=== PATIENT | female | born 1980 | race Caucasian/White ===

== ENCOUNTER → 2020-09-25 | Outpatient (CLI) | payer BC, OTHER | LOC: KOH-I 10:14 | DX: M25.572 Pain in left ankle and joints of left foot (principal) | CPT/HCPCS: 73610; 73630 ==

== ENCOUNTER → 2020-10-03 | Outpatient (CLI) | payer BC, OTHER | LOC: KOH-I 13:30 | DX: S96.912A Strain of unspecified muscle and tendon at ankle and foot level, left foot, initial encounter (principal); M25.475 Effusion, left foot | CPT/HCPCS: 73718 ==

== ENCOUNTER → 2021-04-05 | Outpatient (CLI) | payer BC | LOC: KOH-I 09:47 | DX: M79.672 Pain in left foot (principal) | CPT/HCPCS: 73630 ==